=== PATIENT | male | born 1965 | race Hispanic/Latino ===

== ENCOUNTER 2022-04-13 11:30 | Inpatient (IN) | payer OTHER ==
[~2022-04-13] VITALS: Ht 172.7 cm; Wt 86.0 kg
[2022-04-13] VITALS (21 sets, daily range): BP systolic 54–109; BP diastolic 20–71
[2022-04-13 11:53] LABS: BASOPHILS % (AUTO) 0.3 % (0.0-5.0); EOSINOPHILS % (AUTO) 0.9 % (0.0-8.0); HEMATOCRIT 47.5 % (42-54); LYMPHOCYTES % (AUTO) 32.5 % (21.0-51.0); MEAN CORPUSCULAR HGB CONC 37.5 g/dL (32.0-36.0); MEAN CORPUSCULAR VOLUME 85.4 fL (79-99); MONOCYTES % (AUTO) 6.1 % (3.0-13.0); NEUTROPHILS % (AUTO) 59.7 % (40.0-77.0); PLATELET COUNT (AUTO) 255 K/uL (130-400); RED BLOOD CELL COUNT(AUTO) 5.56 MIL/uL (4.50-6.20); RED CELL DISTRIBUTION WIDTH 12.6 % (11.0-15.5)
[2022-04-13] MEDS ORDERED: 0.9%NACL 1000ML 1,368 ML IV ONE (12:00)
[2022-04-13] MEDS ORDERED: PANTOPRAZOLE 40 MG/VIAL IVP ONE (12:00)
[2022-04-13] MEDS ORDERED: ONDANSETRON 4MG INJ IVP ONE (12:00)
[2022-04-13] MEDS ORDERED: MORPHINE 4 MG SYG IVP ONE ×2 (12:00→13:30)
[2022-04-13] MEDS: POTASSIUM CHLORIDE 20 MEQ/100 ML BAG IV SCH ×2 (13:15→19:16)
[2022-04-13 13:25] LABS: ABG OXYGEN SATURATION 86.8 % (95.0-99.0); BASE EXCESS,VENOUS BLOOD GAS -7.9 (-2.0-3.0); HCO3,VENOUS BLOOD GAS 17.2 (21.0-28.0); PCO2,VENOUS BLOOD GAS 35 (35-48); PH,VENOUS BLOOD GAS 7.314 (7.350-7.450)
[2022-04-13] MEDS ORDERED: LEVOFLOXACIN 500 MG/D5W 100 ML 100 ML IV SCH (13:30)
[2022-04-13] MEDS ORDERED: PROMETHAZINE HCL 25 MG/ML 1ML AMPULE IM ONE (13:30)
[2022-04-13 13:45] LABS: ALBUMIN 4.1 g/dL (3.5-5.0); CREATININE 1.5 mg/dL (0.5-1.5); TOTAL PROTEIN, SERUM 8.7 g/dL (6.0-8.3)
[2022-04-13] MEDS ORDERED: HYDROMORPHONE 1 MG INJ IVP PRN (15:00)
[2022-04-13] MEDS ORDERED: ENOXAPARIN SODIUM 30 MG/0.3 ML SQ SCH (15:00)
[2022-04-13] MEDS ORDERED: HYDROMORPHONE 0.5 MG SYG (0.5MG/0.5ML) IM PRN (15:00)
[2022-04-13] MEDS ORDERED: INSULIN REGULAR, HUMAN 3ML 100 UNIT in 0.9%NACL 100ML 99 ML IV PRN ×2 (15:00)
[2022-04-13] MEDS ORDERED: ONDANSETRON 4MG INJ IV PRN (15:00)
[2022-04-13] MEDS ORDERED: PANTOPRAZOLE 40 MG/VIAL IVP SCH (15:00)
[2022-04-13] MEDS ORDERED: ACETAMINOPHEN 325 MG TAB PO PRN (15:00)
[2022-04-13] MEDS ORDERED: DEXTROSE 5 %-0.45 % NACL 1,000 ML IV PRN (15:00)
[2022-04-13] MEDS ORDERED: 0.9%NACL 1000ML 1,000 ML IV SCH ×2 (15:00→18:00)
[2022-04-13] MEDS ORDERED: HYDROMORPHONE 1 MG INJ IM PRN (15:00)
[2022-04-13] MEDS ORDERED: ATORVASTATIN 40 MG TABLET PO ONE (15:30)
[2022-04-13] MEDS: 0.9%NACL 1000ML 1,000 ML IV SCH ×4 (15:41→23:01)
[2022-04-13 16:13] LABS: HDL CHOLESTEROL 35 mg/dL (29-71); LDL DIRECT 33 mg/dL (0-99)
[2022-04-13 16:27] LABS: MAGNESIUM 1.8 mg/dL (1.80-2.40); POTASSIUM 4.8 mmol/L (3.5-5.1)
[2022-04-13 16:31] LABS: TRIGLYCERIDES 6173 mg/dL (30-200)
[2022-04-13 16:43] LABS: CREATINE KINASE, TOTAL 350 U/L (21-232); MYOGLOBIN 989 ng/mL (10-92)
[2022-04-13 16:44] LABS: CREATININE 1.2 mg/dL (0.5-1.5)
[2022-04-13] MEDS: INSULIN GLARGINE 100 UNITS/ML 10 ML VIAL SQ SCH ×2 (17:09→20:05)
[2022-04-13] MEDS ORDERED: NOREPINEPHRIN 4MG/NS 250ML 250 ML IV PRN (18:00)
[2022-04-13] MEDS ORDERED: MAGNESIUM 2GM PREMIX 50ML 50 ML IV PRN (18:30)
[2022-04-13 19:24] LABS: CHOLESTEROL 212 mg/dL (<200)
[2022-04-13] MEDS ORDERED: SITA1TBM4 PO (19:55)
[2022-04-13] MEDS ORDERED: GLIP10TA9 PO ×2 (19:55)
[2022-04-13] MEDS ORDERED: PIOG30TA70 PO (19:55)
[2022-04-13] MEDS ORDERED: ACET-2079 PO (19:55)
[2022-04-13] MEDS ORDERED: CLOP75TA14 PO (19:55)
[2022-04-13] MEDS ORDERED: ATOR40TA71 PO (19:55)
[2022-04-13] MEDS ORDERED: EMPA25TA PO (19:55)
[2022-04-13] MEDS ORDERED: METO25TA6 PO (19:55)
[2022-04-13] MEDS ORDERED: LISI5TAB21 PO (19:55)
[2022-04-13] MEDS ORDERED: FENO145T26 PO (19:55)
[2022-04-13] MEDS ORDERED: ASPI-1005 PO (19:55)
[2022-04-13 20:01] LABS: CREATININE 0.9 mg/dL (0.5-1.5); GLOMERULAR FILTR. RATE CALC 93 mL/min (>60); GLUCOSE,RANDOM 340 mg/dL (70-105); SODIUM SERUM 142 mmol/L (136-145); UREA NITROGEN, BLOOD 15 mg/dL (7-18)
[2022-04-13] MEDS: ZOSYN 3.375GM+NS 50ML 50 ML IV SCH (20:03)
[2022-04-13 20:16] LABS: POTASSIUM 2.8 mmol/L (3.5-5.1)
[2022-04-13 20:17] LABS: CHLORIDE 120 mmol/L (101-111)
[2022-04-13] MEDS ORDERED: SODIUM CHLORIDE 1,000 MG TAB PO SCH (20:30)
[2022-04-13] MEDS: POTASSIUM CHLORIDE 10MEQ/100ML 100 ML IV PRN ×2 (20:33→21:44)
[2022-04-13] MEDS: PHENYLEPHRINE HCL 100 MG in 0.9% NACL 250ML 250 ML IV SCH (20:38)
[2022-04-13] MEDS ORDERED: ATORVASTATIN 40 MG TABLET PO SCH (21:00)
[2022-04-13] MEDS ORDERED: FENOFIBRATE NANOCRYSTALLIZED 145 MG TAB PO SCH (21:00)
[2022-04-13] MEDS ORDERED: INSULIN GLARGINE 100 UNITS/ML 10 ML VIAL SQ SCH (22:00)
[2022-04-13] MEDS: NS-20 MEQ KCL 1000ML 1,000 ML IV SCH (22:06)
[2022-04-13 22:30] LABS: ABG BASE EXCESS -17.6 mmol/L (-2.0-3.0); ABG OXYGEN SATURATION 97.1 % (95.0-99.0); ABG PCO2 30 mmHg (35-48)
[2022-04-13] MEDS ORDERED: 0.9% NACL 250ML 250 ML ONE (22:40)
[2022-04-13] MEDS ORDERED: PHENYLEPHRINE HCL 10 MG/ML 5ML VIAL IV ONE (22:40)
[2022-04-13 22:42] LABS: CARBON DIOXIDE 6 mmol/L (21-32)
[2022-04-13] MEDS ORDERED: [UNRECOGNIZED DRUG - MIXTURE] IVP SCH (22:45)
[2022-04-13] MEDS ORDERED: SODIUM BICARB 50MEQ 50ML VIAL 150 ML ONE (23:35)
[2022-04-13] MEDS ORDERED: SODIUM BICARB 50MEQ 50ML VIAL 100 ML ONE (23:40)
[2022-04-13] MEDS ORDERED: DEXMEDETOMIDINE 400MCG/NS100ML IV ONE (23:40)
[2022-04-13] MEDS ORDERED: VASOPRESSIN 20 UNITS/ML 1ML VIAL ONE (23:53)
[2022-04-14] VITALS (17 sets, daily range): BP systolic 56–180; BP diastolic 26–107
[2022-04-14 00:08] LABS: ABG BASE EXCESS -19.7 mmol/L (-2.0-3.0); ABG HCO3 8.5 mmol/L (21.0-28.0); ABG OXYGEN SATURATION 98.8 % (95.0-99.0); ABG PCO2 28 mmHg (35-48)
[2022-04-14] MEDS ORDERED: SODIUM BICARB 50MEQ 50ML VIAL 50 ML ONE (00:10)
[2022-04-14] MEDS: 0.9%NACL 1000ML 1,000 ML IV SCH ×2 (01:00→03:38)
[2022-04-14] MEDS ORDERED: NOREPINEPHRIN 4MG/NS 250ML 250 ML IV SCH (01:30)
[2022-04-14] MEDS ORDERED: SODIUM BICARB 8.4% 50ML SYRINGE IVP ONE (01:30)
[2022-04-14 01:39] LABS: ABG BASE EXCESS -23.3 mmol/L (-2.0-3.0); ABG HCO3 5.9 mmol/L (21.0-28.0); ABG OXYGEN SATURATION 99.2 % (95.0-99.0); ABG PCO2 23 mmHg (35-48)
[2022-04-14] MEDS ORDERED: SODIUM BICARB 50MEQ 50ML VIAL 200 ML ONE (01:45)
[2022-04-14] MEDS ORDERED: DEXMEDETOMIDINE 400MCG/NS100ML IV ONE (02:34)
[2022-04-14] MEDS: ZOSYN 3.375GM+NS 50ML 50 ML IV SCH ×2 (02:49→04:20)
[2022-04-14 03:24] LABS: ABG BASE EXCESS -20.2 mmol/L (-2.0-3.0); ABG HCO3 8.2 mmol/L (21.0-28.0); ABG OXYGEN SATURATION 99.2 % (95.0-99.0); ABG PCO2 28 mmHg (35-48)
[2022-04-14] MEDS ORDERED: VASOPRESSIN 40 UNITS in 0.9%NACL 50ML 40 ML IV SCH (03:30)
[2022-04-14] MEDS ORDERED: DEXMEDETOMIDINE 400MCG/NS100ML IV SCH (03:30)
[2022-04-14] MEDS ORDERED: SODIUM BICARB 8.4% 50ML SYRINGE IVP SCH (03:30)
[2022-04-14] MEDS: PHENYLEPHRINE HCL 100 MG in 0.9% NACL 250ML 250 ML IV SCH (03:40)
[2022-04-14] MEDS ORDERED: SODIUM BICARB 50MEQ 50ML VIAL 150 ML ONE (03:42)
[2022-04-14 03:44] LABS: CHLORIDE 107 mmol/L (101-111); GLOMERULAR FILTR. RATE CALC 23 mL/min (>60); SODIUM SERUM 139 mmol/L (136-145); UREA NITROGEN, BLOOD 32 mg/dL (7-18)
[2022-04-14 03:50] LABS: CARBON DIOXIDE 7 mmol/L (21-32); GLUCOSE,RANDOM 545 mg/dL (70-105); POTASSIUM 6.3 mmol/L (3.5-5.1)
[2022-04-14] MEDS: NS-20 MEQ KCL 1000ML 1,000 ML IV SCH (04:20)
[2022-04-14 05:00] LABS: APPEARANCE,URINE CLOUDY (CLEAR); BILIRUBIN,URINE MODERATE (NEGATIVE); COLOR,URINE BROWN (YELLOW); GLUCOSE, URINE (UA) >=1000 mg/dL (NEGATIVE); KETONES,URINE 15 mg/dL (NEGATIVE); LEUKOCYTE ESTERASE ,URINE TRACE (NEGATIVE); NITRATE,URINE POSITIVE (NEGATIVE); OCCULT BLOOD,URINE LARGE (NEGATIVE); PH,URINE 6.5 (5.0-8.0); PROTEIN,URINE >=300 mg/dL (NEGATIVE)
[2022-04-14] MEDS ORDERED: LINEZOLID 600 MG/ISO-OSM 300 ML IV SCH (05:00)
[2022-04-14 05:14] LABS: BACTERIA,URINE Moderate /HPF (None Seen)
[2022-04-14] MEDS ORDERED: INSULIN GLARGINE 100 UNITS/ML 10 ML VIAL SQ SCH (05:30)
[2022-04-14] MEDS ORDERED: 0.9% NACL 500ML IV.SOLN 500 ML IV ONE (05:53)
[2022-04-14] MEDS ORDERED: [UNRECOGNIZED DRUG - MIXTURE] IVP STA (06:16)
[2022-04-14 06:41] LABS: CREATININE 0.6 mg/dL (0.5-1.5); GLOMERULAR FILTR. RATE CALC 148 mL/min (>60); GLUCOSE,RANDOM 110 mg/dL (70-105)
[2022-04-14] MEDS ORDERED: HYDROCORTISONE SOD SUCCINATE 100 MG/2 ML VIAL IV SCH (07:00)
[2022-04-14 07:14] LABS: SODIUM SERUM 155 mmol/L (136-145)
[2022-04-14 07:22] LABS: MEAN CORPUSCULAR HEMOGLOBIN 30.7 pg (27.0-33.0); MEAN CORPUSCULAR VOLUME 99.1 fL (79-99); NUCLEATED RED BLOOD CELLS 2.2 % (0.0-0.19); PLATELET COUNT (AUTO) 69 K/uL (130-400); RED BLOOD CELL COUNT(AUTO) 1.14 MIL/uL (4.50-6.20); RED CELL DISTRIBUTION WIDTH 13.6 % (11.0-15.5); WHITE BLOOD COUNT (AUTO) 4.9 K/uL (4.8-10.8)
[2022-04-14 07:39] LABS: POTASSIUM < 1.4 mmol/L (3.5-5.1)
[2022-04-14 07:50] LABS: POTASSIUM < 1.4 mmol/L (3.5-5.1)
[2022-04-14 07:51] LABS: CHLORIDE 136 mmol/L (101-111)
[2022-04-14 08:04] LABS: HEMATOCRIT 11.3 % (42-54)
[2022-04-14 09:11] LABS: BAND NEUTROPHILS % (MANUAL) 4 % (0-2); LYMPHOCYTES % (MANUAL) 13 % (22-44); METAMYELOCYTES % 4 % (0-0); MONOCYTES % (MANUAL) 2 % (2-9); MYELOCYTES % 1 % (0-0); SEGMENTED NEUTROPHILS % 76 % (40-70)
[2022-04-14 09:12] LABS: PLATELET MORPHOLOGY COMMENT MARKED DECREASE
[2022-04-14] MEDS ORDERED: HEPARIN 5,000 UNIT VIAL SQ SCH (21:00)
== END 2022-04-14 07:32 | DRG 871 ==
LOC: EDH 11:30 → EDHIP 11:31 → 2BH 17:39
PROVIDERS: ADMIT Internal Medicine; ATTEND Internal Medicine
PROC: 5A09357 Assistance with Respiratory Ventilation, Less than 24 Consecutive Hours, Continuous Positive Airway Pressure (ICD-10-PCS; principal; 2022-04-13)
PROC: 5A09357 Assistance with Respiratory Ventilation, Less than 24 Consecutive Hours, Continuous Positive Airway Pressure (ICD-10-PCS; 2022-04-14)
PROC: 0BH17EZ Insertion of Endotracheal Airway into Trachea, Via Natural or Artificial Opening (ICD-10-PCS; 2022-04-14)
PROC: 5A12012 Performance of Cardiac Output, Single, Manual (ICD-10-PCS; 2022-04-14)
DX: A41.9 Sepsis, unspecified organism (principal); E11.10 Type 2 diabetes mellitus with ketoacidosis without coma; J96.01 Acute respiratory failure with hypoxia; K85.90 Acute pancreatitis without necrosis or infection, unspecified; R65.21 Severe sepsis with septic shock; E87.1 Hypo-osmolality and hyponatremia; E87.4 Mixed disorder of acid-base balance; M62.82 Rhabdomyolysis; N17.9 Acute kidney failure, unspecified; E72.20 Disorder of urea cycle metabolism, unspecified; E78.00 Pure hypercholesterolemia, unspecified; E83.51 Hypocalcemia; E86.0 Dehydration; E86.1 Hypovolemia; E87.5 Hyperkalemia; E87.6 Hypokalemia; E87.8 Other disorders of electrolyte and fluid balance, not elsewhere classified; I10 Essential (primary) hypertension; I25.10 Atherosclerotic heart disease of native coronary artery without angina pectoris; I25.2 Old myocardial infarction; K57.90 Diverticulosis of intestine, part unspecified, without perforation or abscess without bleeding; Z95.5 Presence of coronary angioplasty implant and graft
CPT/HCPCS: 31500; 36415; 36600; 71045; 74176; 80048; 80053; 80061; 80076; 81001; 82010; 82140; 82435; 82550; 82803; 82947; 82948; 83036; 83605; 83690; 83735; 83874; 84132; 84145; 84295; 84484; 85018; 85025; 87040; 87088; 92950; 93005; 94660; C9113; G0378; J1170; J1650; J1815; J1956; J2020; J2270; J2370; J2405; J2543; J2550; J3480; J3490; J7030; J7040; J7050